=== PATIENT | male | born 1980 | race Caucasian/White ===

== ENCOUNTER 2018-03-17 20:19 | Emergency (ER) | payer OTHER ==
[~2018-03-17] VITALS: Ht 175.3 cm; Wt 83.9 kg
[2018-03-17 20:37] VITALS: BP 144/89
== END 2018-03-17 22:53 | disposition home or self-care (01) ==
LOC: ER 20:19
DX: A15.9 Respiratory tuberculosis unspecified (principal)
CPT/HCPCS: 71045